=== PATIENT | female | born 2000 | race Caucasian/White ===

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

== ENCOUNTER 2019-10-14 10:34 | Emergency (ER) | payer SELFPAY ==
--- NOTE | 2019-10-14 10:48 | EDM.PDOC ---
ED HPI GENERAL MEDICAL PROBLEM - General Stated Complaint: MEDICAL CLEARANCE TO RETURN TO WORK Time Seen by Provider: 10/14/19 10:41 Source of Information: Reports: Patient History Limitations: Reports: No Limitations - History of Present Illness INITIAL COMMENTS - FREE TEXT/NARRATIVE: HISTORY AND PHYSICAL: History of present illness: Patient is a 19-year-old female who presents to the ED today with concern of a medical screening exam in order to return to work. Patient states that she is 10 weeks and a few days ago called out to work as she was feeling more tired and nauseous that day (4 days ago). Patient states that she is unable to return to work until she is medically evaluated and screened. Patient states she does not have any symptoms or concerns today. denies vaginal bleeding, abd pain. Patient denies fever, chills, chest pain, shortness of breath, or cough. Denies headache, neck stiff ness, change in vision, syncope, or near syncope. Denies nausea, vomiting, abdominal pain, diarrhea, constipation, or dysuria. Has not noted any blood in urine or stool. Patient has been eating and drinking appropriately. Review of systems: As per history of present illness and below otherwise all systems reviewed and negative. Past medical history: As per history of present illness and as reviewed below otherwise noncontributory. Surgical history: As per history of present illness and as reviewed below otherwise noncontributory. Social history: See social history for further information Family history: As per history of present illness and as reviewed below otherwise noncontributory. Physical exam: General: Patient is alert, oriented, and in no acute distress. Patient sitting comfortably on exam table. HEENT: Atraumatic, normocephalic, pupils equal and reactive bilaterally, negative for conjunctival pallor or scleral icterus, mucous membranes moist, TMs normal bilaterally, throat clear, neck supple, nontender, trachea midline. No drooling or trismus noted. No meningeal signs. No hot potato voice noted. Lungs: Clear to auscultation, breath sounds equal bilaterally, chest nontender. Heart: S1S2, regular rate and rhythm without overt murmur Abdomen: Soft, nondistended, nontender. Negative for masses or hepatosplenomegaly. Negative for costovertebral tenderness. Pelvis: Stable nontender. Genitourinary: Deferred. Rectal: Deferred. Skin: Intact, warm, dry. No lesions or rashes noted. Extremities: Atraumatic, negative for cords or calf pain. Neurovascular unremarkable. Neuro: Awake, alert, oriented. Cranial nerves II through XII unremarkable. Cerebellum unremarkable. Motor and sensory unremarkable throughout. Exam nonfocal. Notes: Discussed the importance for follow-up with a primary care provider. Voices understanding and is agreeable to plan of care. Denies any further questions or concerns at this time. Diagnostics: None Therapeutics: None Prescription: None Impression: Medical screening exam Plan: 1. Follow-up with a primary care provider as discussed. Return to the ED as needed and as discussed. Definitive disposition and diagnosis as appropriate pending reevaluation and review of above. - Related Data Allergies Allergy/AdvReac Type Severity Reaction Status Date / Time No Known Allergies Allergy Verified 10/14/19 10:44 Home Meds: Home Meds . [No Known Home Meds] 10/14/19 [History] Past Medical History - Past Health History Medical/Surgical History: Denies Medical/Surgical History HEENT History: Reports: None Cardiovascular History: Reports: None Respiratory History: Reports: Asthma Gastrointestinal History: Reports: None Genitourinary History: Reports: None [employer] History: Reports: Musculoskeletal History: Reports: None Neurological History: Reports: None Psychiatric History: Reports: None Endocrine/Metabolic History: Reports: Diabetes, Gestational Hematologic History: Reports: None Immunologic History: Reports: None Oncologic (Cancer) History: Reports: None Dermatologic History: Reports: None - Infectious Disease History Infectious Disease History: Reports: Chicken Pox Social & Family History - Family History Family Medical History: Noncontributory HEENT: Reports: Cataract, Glaucoma, Impaired Vision Cardiac: Reports: Afib, High Cholesterol, Hypertension, [place] Respiratory: Reports: Asthma, COPD GI: Reports: None : Reports: None OBGYN: Reports: Musculoskeletal: Reports: Arthritis, Fibromyalgia, RA Neurological: Reports: Alzheimers Disease, Dementia, Migraines, Neuropathy, Diabetic Psychiatric: Reports: Abuse, Victim of, Anxiety, Bipolar, Depression, Schizophrenia, Suicide Attempt Endocrine/Metabolic: Reports: Diabetes, Gestational, Diabetes, Type I, Diabetes , type II, Hypothyroidism Hematologic: Reports: None Immunologic: Reports: None Dermatologic: Reports: None Oncologic: Reports: Bone, Breast, Colon, Lung, Ovarian, Pancreatic, Skin - Caffeine Use Caffeine Use: Reports: Coffee ED ROS GENERAL - Review of Systems Review Of Systems: Comprehensive ROS is negative, except as noted in HPI. ED EXAM, GENERAL - Physical Exam Exam: See Below (see dictation) Course - Vital Signs Last Recorded V/S: Last Vital Signs Temp 97.0 F 10/14/19 10:44 Pulse 90 10/14/19 10:44 Resp 16 10/14/19 10:44 BP 128/61 10/14/19 10:44 Pulse Ox 97 10/14/19 10:44 Departure - Departure Time of Disposition: 10:55 Disposition: Home, Self-Care 01 Clinical Impression: Encounter for medical screening examination - Discharge Information Referrals: Timothy Ayala MD [Primary Care Provider] - Additional Instructions: The following information is given to patients seen in the emergency department who are being discharged to home. This information is to outline your options for follow-up care. We provide all patients seen in our emergency department with a follow-up referral. The need for follow-up, as well as the timing and circumstances, are variable depending upon the specifics of your emergency department visit. If you don't have a primary care physician on staff, we will provide you with a referral. We always advise you to contact your personal physician following an emergency department visit to inform them of the circumstance of the visit and for follow-up with them and/or the need for any referrals to a consulting specialist. The emergency department will also refer you to a specialist when appropriate. This referral assures that you have the opportunity for follow-up care with a specialist. All of these measure are taken in an effort to provide you with optimal care, which includes your follow-up. Under all circumstances we always encourage you to contact your private physician who remains a resource for coordinating your care. When calling for follow-up care, please make the office aware that this follow-up is from your recent emergency room visit. If for any reason you are refused follow-up, please contact the [facility] Emergency Department at and asked to speak to the emergency department charge nurse. [facility] [address] [place] [id number] [facility] [address] [place] [address] Follow-up with a primary care provider as discussed. Return to the ED as needed and as discussed. Sepsis Event Note - Focused Exam Vital Signs: Vital Signs Temp Pulse Resp BP Pulse Ox 10/14/19 10:44 97.0 F 90 16 128/61 97 Date Exam was Performed: 10/14/19 Time Exam was Performed: 10:54
== END 2019-10-14 11:08 | disposition home or self-care (01) ==
LOC: MW.ED 10:34
DX: Z00.00 Encounter for general adult medical examination without abnormal findings (principal); Z3A.10 10 weeks gestation of pregnancy
CPT/HCPCS: 99282

== ENCOUNTER 2021-08-04 23:42 | Emergency (ER) | payer SELFPAY ==
[2021-08-04] MEDS ORDERED: Ondansetron 4 MG Tab.DIS PO ONE (23:55)
[2021-08-05] MEDS ORDERED: Ketorolac 30 MG/ML SDV IM ONE (00:23)
== END 2021-08-05 01:39 | disposition home or self-care (01) ==
LOC: MW.ED 23:42
DX: R06.02 Shortness of breath (principal); R20.2 Paresthesia of skin; R10.84 Generalized abdominal pain; M54.6 Pain in thoracic spine
CPT/HCPCS: 81001; 81025; 93005; 96372; 99285; A9270; J1885

== ENCOUNTER 2022-10-10 18:58 | Emergency (ER) | payer BC ==
[2022-10-10] MEDS ORDERED: Ondansetron 4 MG/2 ML SDV IVPUSH ONE ×2 (19:16→21:38)
[2022-10-10] MEDS ORDERED: Morphine 4 MG/ML Syringe IVPUSH ONE (19:16)
[2022-10-10] MEDS ORDERED: Sodium Chloride 0.9% 1,000 ML IV ONE (19:16)
[2022-10-10] MEDS ORDERED: Famotidine 20 MG/2 ML SDV IVPUSH ONE (19:19)
[2022-10-10] MEDS ORDERED: Alum Hydro/Mag Hydro/Simeth XS 15 ML, Lidocaine 2% 5 ML PO ONE ×2 (19:19)
[2022-10-10] MEDS ORDERED: cefTRIAXone 1 GM in Sodium Chloride 0.9% 50 ML IV ONE (20:03)
[2022-10-10] MEDS ORDERED: Iopamidol 755 Mg/ML 100 ML Bottle IVPUSH ONE (20:07)
[2022-10-10 20:08] LABS: POTASSIUM,K 3.7 mmol/L (3.5-5.1)
== END 2022-10-10 22:07 | disposition home or self-care (01) ==
LOC: MW.ED 18:58
DX: K80.20 Calculus of gallbladder without cholecystitis without obstruction (principal); N39.0 Urinary tract infection, site not specified; N76.0 Acute vaginitis; B96.89 Other specified bacterial agents as the cause of diseases classified elsewhere
CPT/HCPCS: 36415; 74177; 76705; 80053; 81001; 81025; 83690; 83735; 85025; 96361; 96365; 96375; 96376; 99284; A9270; J0696; J2270; J2405; J3490; J7030; J7050; Q9967

== ENCOUNTER 2022-11-02 06:39 | Day surgery (SDC) | payer BC ==
[~2022-11-02 06:39] MED LIST: Lactated Ringers 1,000 ML IV SCH; cefOXitin 2 GM in Sodium Chloride 0.9% 100 ML IV ONE
[2022-11-02] MEDS ORDERED: Ondansetron 4 MG/2 ML SDV IVPUSH PRN (07:04)
[2022-11-02] MEDS ORDERED: Metoclopramide 10 MG/2 ML SDV IVPUSH PRN (07:04)
[2022-11-02] MEDS ORDERED: droPERidol 5 MG/2 ML SDV IVPUSH PRN (07:04)
[2022-11-02] MEDS ORDERED: HYDROmorphone 1 MG/ML Syringe IVPUSH PRN (07:04)
[2022-11-02] MEDS ORDERED: Naloxone 0.4 MG/ML SDV IVPUSH PRN (07:04)
[2022-11-02] MEDS ORDERED: fentaNYL 50 MCG/ML SDV IVPUSH PRN (07:04)
[2022-11-02] MEDS ORDERED: Morphine 2 MG/ML SYRINGE IVPUSH PRN (07:04)
[2022-11-02] MEDS ORDERED: Albuterol 0.083% 2.5 MG/3 ML Neb Soln NEB PRN (07:04)
[2022-11-02] MEDS ORDERED: Bupivacaine 0.5% 30 ML SDV ONE ×2 (07:23→09:15)
[2022-11-02] MEDS ORDERED: Ketorolac 30 MG/ML SDV ONE (07:24)
[2022-11-02] MEDS ORDERED: Dexamethasone 4 MG/ML 5 ML MDV ONE (07:24)
[2022-11-02] MEDS ORDERED: Propofol 200 MG/20 ML SDV ONE (07:24)
[2022-11-02] MEDS ORDERED: Lidocaine 2% 5 ML SDV ONE (07:24)
[2022-11-02] MEDS ORDERED: Rocuronium Bromide 50 MG/5 ML Syringe ONE (07:24)
[2022-11-02] MEDS ORDERED: Sugammadex Sodium 200 MG/2 ML VIAL ONE (07:24)
[2022-11-02] MEDS ORDERED: fentaNYL 100 MCG/2 ML SDV ONE ×2 (07:24→09:58)
[2022-11-02] MEDS ORDERED: Dexmedetomidine 200 MCG/2 ML SDV ONE (07:28)
[2022-11-02] MEDS ORDERED: Water For Injection, Sterile 20 ML ONE ×2 (07:29)
[2022-11-02] MEDS ORDERED: Bupivacaine 25%/EPINEPHrine/PF 30 ML ONE (07:33)
[2022-11-02] MEDS ORDERED: Ropivacaine 0.5% 5 MG/ML 30 ML SDV ONE (07:34)
[2022-11-02] MEDS ORDERED: Indocyanine Green 25 MG SDV ONE (09:45)
[2022-11-02] MEDS ORDERED: HYDROmorphone 2 MG/ML Syringe ONE (10:11)
[2022-11-02] MEDS ORDERED: Bupivacaine 0.5% 10 ML SDV ONE (10:52)
[2022-11-02] MEDS ORDERED: Acetaminophen/HYDROcodone 325-5 MG Tab PO PRN (11:18)
[2022-11-02] MEDS ORDERED: Morphine 4 MG/ML Syringe IVPUSH PRN (11:18)
[2022-11-02] MEDS ORDERED: Lactated Ringers 1,000 ML IV SCH (11:30)
== END 2022-11-02 14:10 | disposition home or self-care (01) ==
LOC: MW.SDS 06:39
PROVIDERS: ATTEND Surgery
DX: K80.10 Calculus of gallbladder with chronic cholecystitis without obstruction (principal); Z83.3 Family history of diabetes mellitus; Z83.79 Family history of other diseases of the digestive system
CPT/HCPCS: 47562; 81025; A9270; J0131; J1100; J1170; J1885; J2405; J2704; J2795; J3010; J3490; J7030; J7120; 00790; 64488